=== PATIENT | male | born 1960 | race African-American/Black ===

== ENCOUNTER 2016-12-21 14:34 | Emergency (ER) | payer OTHER ==
[~2016-12-21] VITALS: Ht 182.9 cm; Wt 120.0 kg
[~2016-12-21 14:34] MED LIST: ALBU8I INH; BACL20 PO; BUSP15TA PO; DUONI INH; GABA300C3 PO; LEVEMIR SQ; LISI-366 PO; LURA40 PO; METF500 PO; METO25 PO; NEBUMIS6 INH; NICO14T TOP; NOVOLOGSS SQ; OMEP20TA39 PO; PERM5%T TOP; PRED10 PO; SERT100 PO; SIMV40 PO; SKIN1CRE2 TOP; TRAZ50TA4 PO; ULTR50TA PO; VIAG100T PO
[2016-12-21 15:24] VITALS: BP 165/100; PULSE 98; RESP 18; TEMP 98.5; O2SAT 98
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
[2016-12-21] MEDS ORDERED: ATOR40TA16 PO (16:00)
[2016-12-21] MEDS ORDERED: NOVO7030P2 SQ (16:00)
[2016-12-21] MEDS ORDERED: VIAG50TA PO (16:00)
[2016-12-21] MEDS ORDERED: OMEP20CA2 PO (16:00)
[2016-12-21] MEDS ORDERED: TRAZ50TA12 PO (16:00)
[2016-12-21] MEDS ORDERED: PERM5CRE TOPICAL (16:00)
[2016-12-21] MEDS ORDERED: SKIN1CRE2 TOP (16:00)
[2016-12-21] MEDS ORDERED: BACL10TA PO (16:00)
[2016-12-21] MEDS ORDERED: GABA600T PO (16:00)
[2016-12-21] MEDS ORDERED: VENTAER INH (16:00)
[2016-12-21] MEDS ORDERED: ZOLO100T PO (16:00)
[2016-12-21] MEDS ORDERED: LURA20TA PO (16:00)
[2016-12-21] MEDS ORDERED: TRAM50TA PO (16:00)
[2016-12-21] MEDS ORDERED: BUSP15TA PO (16:00)
[2016-12-21] MEDS ORDERED: IPRASOL INH (16:00)
[2016-12-21 16:31] LABS: AUTOMATED NEUTROPHIL # 4.8 TH/MM3 (1.8-7.7); BASOPHIL # 0.1 TH/MM3 (0-0.2); BASOPHIL % 0.8 % (0.0-2.0); EOSINOPHIL # 0.1 TH/MM3 (0-0.4); HEMATOCRIT 38.8 % (39.0-51.0); HEMO FLAGS DIFF FINAL; LYMPH % 25.8 % (9.0-44.0); LYMPHOCYTE # 1.9 TH/MM3 (1.0-4.8); MEAN CELL VOLUME 89.6 FL (80.0-100.0); MEAN CORPUSCULAR HEMOGLOBIN 30.5 PG (27.0-34.0); MEAN CORPUSCULAR HGB CONC 34.1 % (32.0-36.0); MONO % 5.8 % (0.0-8.0); NEUT % 65.6 % (16.0-70.0); PLATELET COUNT 280 TH/MM3 (150-450); RED BLOOD COUNT 4.33 MIL/MM3 (4.50-5.90); RED CELL DISTRIBUTION WIDTH 12.6 % (11.6-17.2); WHITE BLOOD COUNT 7.4 TH/MM3 (4.0-11.0)
[2016-12-21 16:45] LABS: ALKALINE PHOSPHATASE 83 U/L (45-117); TOTAL BILIRUBIN ADULT 0.4 MG/DL (0.2-1.0)
[2016-12-21 16:46] LABS: ALT (GPT) 21 U/L (12-78); ANION GAP 10 MEQ/L (5-15); AST (GOT) 13 U/L (15-37); BICARBONATE 22.4 MEQ/L (21.0-32.0); BLOOD UREA NITROGEN 13 MG/DL (7-18); CHLORIDE 103 MEQ/L (98-107); GLOMERULAR FILTRATION RATE 72 ML/MIN (>89); POTASSIUM 4.2 MEQ/L (3.5-5.1); SODIUM (NA) 135 MEQ/L (136-145)
[2016-12-21 17:12] LABS: AMPHETAMINE, URINE NEG (NEG); BARBITURATES, URINE NEG (NEG); COCAINE, URINE NEG (NEG)
[2016-12-21] MEDS: INSULIN NovoLIN REGULAR SUPPLEMENTAL SCALE SQ SCH (19:59)
[2016-12-21] MEDS ORDERED: diphenhydrAMINE HCL 50 MG CAP PO PRN (22:00)
[2016-12-21 22:34] VITALS: BP 133/75; PULSE 89; RESP 19; TEMP 97.6; O2SAT 98
[2016-12-22 02:21] VITALS: BP 127/67; PULSE 86; RESP 19; TEMP 97.8; O2SAT 98
[2016-12-22 06:23] VITALS: BP 130/69; PULSE 73; RESP 17; O2SAT 97
[2016-12-22] MEDS: INSULIN NovoLIN REGULAR SUPPLEMENTAL SCALE SQ SCH ×2 (08:25→11:35)
[2016-12-22 10:09] VITALS: BP 118/70; PULSE 96; RESP 18; O2SAT 96
[2016-12-22 12:46] VITALS: BP 118/70; PULSE 96; RESP 18; O2SAT 96
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
== END 2016-12-22 13:39 | disposition home or self-care (01) ==
LOC: NEDAMB 14:34 → NEPJ 12-22 13:39
DX: F43.25 Adjustment disorder with mixed disturbance of emotions and conduct (principal); R45.851 Suicidal ideations; F31.9 Bipolar disorder, unspecified; E11.9 Type 2 diabetes mellitus without complications; R51 Headache; K59.9 Functional intestinal disorder, unspecified; I10 Essential (primary) hypertension; E78.00 Pure hypercholesterolemia, unspecified; G47.30 Sleep apnea, unspecified; Z79.4 Long term (current) use of insulin; Z72.0 Tobacco use; Z86.59 Personal history of other mental and behavioral disorders; Z87.39 Personal history of other diseases of the musculoskeletal system and connective tissue; Z86.79 Personal history of other diseases of the circulatory system; Z87.19 Personal history of other diseases of the digestive system; Z86.69 Personal history of other diseases of the nervous system and sense organs; Z87.09 Personal history of other diseases of the respiratory system
CPT/HCPCS: 80053; 80307; 80320; 85025; 96372; 99284; Q0163